=== PATIENT | female | born 1970 | race Asian ===

== ENCOUNTER → 2017-09-02 | Outpatient (CLI) | payer OTHER | LOC: BRMIMAGING 08:17 | PROVIDERS: ATTEND Family Medicine | DX: Z12.31 Encounter for screening mammogram for malignant neoplasm of breast (principal) ==

== ENCOUNTER → 2017-09-12 | Outpatient (CLI) | payer OTHER | LOC: BRMIMAGING 09:16 | PROVIDERS: ATTEND Family Medicine | DX: Z03.89 Encounter for observation for other suspected diseases and conditions ruled out (principal) ==